=== PATIENT | male | born 1960 | race Caucasian/White ===

== ENCOUNTER 2016-04-10 17:40 | Inpatient (IN) | payer MEDICAID ==
[~2016-04-10] VITALS: Ht 182.9 cm; Wt 105.2 kg
[2016-04-10] MEDS ORDERED: NITR.4 SL (19:13)
[2016-04-10] MEDS ORDERED: ASPI81 PO (19:13)
[2016-04-10] MEDS ORDERED: METO50 PO (19:13)
[2016-04-10] MEDS ORDERED: ATOR20TA86 PO (19:13)
[2016-04-10] MEDS ORDERED: SERT100T12 PO (19:13)
[2016-04-10] MEDS ORDERED: CLOP75 PO (19:13)
[2016-04-10 19:59] LABS: BASOPHILS % (AUTO) 0.3 % (0.0-2.0); EOSINOPHILS % (AUTO) 2.4 % (1.0-6.0); HEMATOCRIT 46.3 % (41-53); HEMOGLOBIN 15.6 g/dL (13.5-17.5); LYMPHOCYTES # (AUTO) 3.1 K/uL (1.0-4.8); LYMPHOCYTES % (AUTO) 37.9 % (22.0-44.0); MEAN CORPUSCULAR HEMOGLOBIN 31.3 pg (26.0-34.0); MEAN CORPUSCULAR HGB CONC 33.7 G/dL (31.0-37.0); MEAN CORPUSCULAR VOLUME 93 fL (80-100); MONOCYTES # (AUTO) 0.4 K/uL (0.1-1.0); NEUTROPHILS # (AUTO) 4.5 K/uL (1.8-7.7); NEUTROPHILS % (AUTO) 54.4 % (40.0-70.0); PLATELET COUNT (AUTO) 179 K/uL (150-450); RED BLOOD CELL COUNT(AUTO) 4.99 MIL/uL (4.50-5.90); RED CELL DISTRIBUTION WIDTH 13.3 % (11.5-14.5); WHITE BLOOD COUNT (AUTO) 8.2 K/uL (4.5-11.0)
[2016-04-10 20:00] LABS: ANION GAP 8 mmol/L (8-16); CALCIUM, TOTAL 9.2 mg/dL (8.8-10.5); CARBON DIOXIDE 27 mmol/L (22-29); CHLORIDE 101 mmol/L (98-107); CREATININE 0.89 mg/dL (0.60-1.30); GLOMERULAR FILTR. RATE CALC > 60 mL/min (>60); SODIUM SERUM 136 mmol/L (136-145); UREA NITROGEN, BLOOD 24 mg/dL (7-18)
[2016-04-10 20:12] LABS: ALANINE AMINOTRANSFERASE 55 U/L (12-78); ALBUMIN 3.9 g/dL (3.4-5.0); ASPARTATE AMINOTRANSFERASE 49 U/L (15-37); BILIRUBIN,TOTAL 0.3 mg/dL (0.1-1.0); TOTAL PROTEIN, SERUM 7.5 g/dL (6.4-8.2)
[2016-04-10] MEDS ORDERED: LORazepam 2 MG TABLET PO ONE (20:45)
[2016-04-10] MEDS ORDERED: ZOLPIDEM TARTRATE 10 MG TABLET PO PRN (21:45)
[2016-04-10 21:57] LABS: APPEARANCE,URINE CLEAR (CLEAR); GLUCOSE, URINE (UA) NEGATIVE (NEGATIVE); KETONES,URINE NEGATIVE (NEGATIVE); LEUKOCYTE ESTERASE ,URINE NEGATIVE (NEGATIVE); OCCULT BLOOD,URINE NEGATIVE (NEGATIVE); PH,URINE 5.5 (5.0-8.0); PROTEIN,URINE NEGATIVE (NEGATIVE)
[2016-04-10 22:00] LABS: ADD UA MICROSCOPIC NO
[2016-04-11] MEDS ORDERED: INFLUENZA VIRUS VACCINE QVS 2016-17 (3YR+)/PF 60 MCG/0.5 ML SYRINGE IM ONE (00:30)
[2016-04-11] MEDS ORDERED: PNEUMOCOCCAL VACCINE POLYVALENT 0.5 ML VIAL [PPSV23] IM ONE (00:30)
[2016-04-11 01:06] VITALS: BP 121/89
[2016-04-11] MEDS ORDERED: NITROGLYCERIN 0.4 MG SUBLINGUAL TABLET #25 SL PRN (05:15)
[2016-04-11] MEDS ORDERED: LOPERAMIDE HCL 2 MG CAPSULE PO PRN (09:45)
[2016-04-11] MEDS ORDERED: ACETAMINOPHEN 325 MG TABLET PO PRN (09:45)
[2016-04-11] MEDS ORDERED: MAG HYDROX/AL HYDROX/SIMETH ES 30 ML SUSPENSION UDCUP PO PRN (09:45)
[2016-04-11] MEDS ORDERED: TUBERCULIN, PURIFIED PROTEIN DERIVATIVE 5 TU/0.1 ML SYG ID ONE (09:45)
[2016-04-11] MEDS ORDERED: MAGNESIUM HYDROXIDE SUSPENSION 30 ML UDCUP PO PRN (09:45)
[2016-04-11] MEDS ORDERED: PROMETHAZINE HCL 25 MG TABLET PO PRN (09:45)
[2016-04-11] MEDS ORDERED: GuaiFENesin/D-METHORPHAN [SUGAR-FREE] 200-20MG/10 ML SYRUP UDCUP PO PRN (09:45)
[2016-04-11] MEDS: ASPIRIN 81 MG CHEWABLE TABLET PO SCH (11:56)
[2016-04-11] MEDS: CLOPIDOGREL BISULFATE 75 MG TABLET PO SCH (11:57)
[2016-04-11] MEDS: METOPROLOL TARTRATE 25 MG TABLET PO SCH (11:57)
[2016-04-11] MEDS: ATORVASTATIN CALCIUM 20 MG TABLET PO SCH (11:57)
[2016-04-11] MEDS: GABAPENTIN 100 MG CAPSULE PO SCH ×3 (11:59→22:00)
[2016-04-11 13:31] VITALS: BP 122/76
[2016-04-11] MEDS: THIAMINE HCL 100 MG TABLET PO SCH (16:35)
[2016-04-11 21:35] VITALS: BP 119/79
[2016-04-11] MEDS: SERTRALINE HCL 100 MG TABLET PO SCH (21:59)
[2016-04-12 08:00] VITALS: BP_SYST 20
[2016-04-12] MEDS ORDERED: GABAPENTIN 300 MG CAPSULE PO SCH (09:00)
[2016-04-12] MEDS ORDERED: DULoxetine HCL 20 MG CAPSULE PO SCH (09:00)
[2016-04-12] MEDS: HydrOXYzine PAMOATE 50 MG CAPSULE PO PRN (09:47)
[2016-04-12] MEDS: ATORVASTATIN CALCIUM 20 MG TABLET PO SCH (09:48)
[2016-04-12] MEDS: CLOPIDOGREL BISULFATE 75 MG TABLET PO SCH (09:48)
[2016-04-12] MEDS: HALOPERIDOL 5 MG TABLET PO PRN (09:48)
[2016-04-12] MEDS: THIAMINE HCL 100 MG TABLET PO SCH ×2 (09:48→16:38)
[2016-04-12] MEDS: METOPROLOL TARTRATE 25 MG TABLET PO SCH (09:48)
[2016-04-12] MEDS: LORazepam 2 MG TABLET PO PRN (09:48)
[2016-04-12] MEDS: MULTIVITAMINS WITH MINERALS, THERAPEUTIC TABLET PO SCH (09:49)
[2016-04-12] MEDS: ASPIRIN 81 MG CHEWABLE TABLET PO SCH (09:49)
[2016-04-12] MEDS: FOLIC ACID 1 MG TABLET PO SCH (09:49)
[2016-04-12] MEDS: GABAPENTIN 400 MG CAPSULE PO SCH ×2 (13:03→16:39)
[2016-04-12 16:46] VITALS: BP 133/76
[2016-04-12] MEDS: SERTRALINE HCL 100 MG TABLET PO SCH (20:26)
[2016-04-13 08:00] VITALS: BP 140/88
[2016-04-13] MEDS: ATORVASTATIN CALCIUM 20 MG TABLET PO SCH (08:57)
[2016-04-13] MEDS: ASPIRIN 81 MG CHEWABLE TABLET PO SCH (08:57)
[2016-04-13] MEDS: METOPROLOL TARTRATE 25 MG TABLET PO SCH (08:57)
[2016-04-13] MEDS: THIAMINE HCL 100 MG TABLET PO SCH ×2 (08:57→16:40)
[2016-04-13] MEDS: MULTIVITAMINS WITH MINERALS, THERAPEUTIC TABLET PO SCH (08:57)
[2016-04-13] MEDS: GABAPENTIN 400 MG CAPSULE PO SCH ×3 (08:57→16:39)
[2016-04-13] MEDS: FOLIC ACID 1 MG TABLET PO SCH (08:57)
[2016-04-13] MEDS: CLOPIDOGREL BISULFATE 75 MG TABLET PO SCH (08:57)
[2016-04-13 16:41] VITALS: BP 132/67
[2016-04-13 16:46] VITALS: BP 112/77
[2016-04-13] MEDS: SERTRALINE HCL 100 MG TABLET PO SCH (21:06)
[2016-04-14 08:00] VITALS: BP 132/77
[2016-04-14] MEDS: CLOPIDOGREL BISULFATE 75 MG TABLET PO SCH (09:16)
[2016-04-14] MEDS: ATORVASTATIN CALCIUM 20 MG TABLET PO SCH (09:16)
[2016-04-14] MEDS: METOPROLOL TARTRATE 25 MG TABLET PO SCH (09:19)
[2016-04-14] MEDS: HALOPERIDOL 5 MG TABLET PO PRN (09:19)
[2016-04-14] MEDS: LORazepam 2 MG TABLET PO PRN (09:19)
[2016-04-14] MEDS: THIAMINE HCL 100 MG TABLET PO SCH ×2 (09:19→16:17)
[2016-04-14] MEDS: FOLIC ACID 1 MG TABLET PO SCH (09:19)
[2016-04-14] MEDS: HydrOXYzine PAMOATE 50 MG CAPSULE PO PRN (09:19)
[2016-04-14] MEDS: ASPIRIN 81 MG CHEWABLE TABLET PO SCH (09:19)
[2016-04-14] MEDS: GABAPENTIN 400 MG CAPSULE PO SCH ×3 (09:19→16:17)
[2016-04-14] MEDS: MULTIVITAMINS WITH MINERALS, THERAPEUTIC TABLET PO SCH (09:19)
[2016-04-14 16:43] VITALS: BP 109/71
[2016-04-14] MEDS: SERTRALINE HCL 100 MG TABLET PO SCH (20:24)
[2016-04-15 08:00] VITALS: BP 124/76
[2016-04-15] MEDS: METOPROLOL TARTRATE 25 MG TABLET PO SCH (08:44)
[2016-04-15] MEDS: CLOPIDOGREL BISULFATE 75 MG TABLET PO SCH (08:44)
[2016-04-15] MEDS: ATORVASTATIN CALCIUM 20 MG TABLET PO SCH (08:45)
[2016-04-15] MEDS: MULTIVITAMINS WITH MINERALS, THERAPEUTIC TABLET PO SCH (08:45)
[2016-04-15] MEDS: FOLIC ACID 1 MG TABLET PO SCH (08:45)
[2016-04-15] MEDS: GABAPENTIN 300 MG CAPSULE PO SCH ×3 (08:45→16:27)
[2016-04-15] MEDS: THIAMINE HCL 100 MG TABLET PO SCH ×2 (08:45→16:27)
[2016-04-15] MEDS: ASPIRIN 81 MG CHEWABLE TABLET PO SCH (08:45)
[2016-04-15 18:50] VITALS: BP 111/75
[2016-04-15] MEDS: SERTRALINE HCL 100 MG TABLET PO SCH (20:26)
[2016-04-15] MEDS ORDERED: HYDROCORTISONE 1% 30 GM OINTMENT TP PRN (22:15)
[2016-04-16 00:33] VITALS: BP 124/74
[2016-04-16] MEDS: LORazepam 2 MG TABLET PO PRN ×2 (00:35→14:25)
[2016-04-16 08:00] VITALS: BP 154/85
[2016-04-16] MEDS: CEPHALEXIN MONOHYDRATE 500 MG CAPSULE PO SCH ×3 (08:50→16:24)
[2016-04-16] MEDS: ASPIRIN 81 MG CHEWABLE TABLET PO SCH (08:50)
[2016-04-16] MEDS: GABAPENTIN 300 MG CAPSULE PO SCH ×3 (08:50→16:24)
[2016-04-16] MEDS: ATORVASTATIN CALCIUM 20 MG TABLET PO SCH (08:50)
[2016-04-16] MEDS: METOPROLOL TARTRATE 25 MG TABLET PO SCH (08:50)
[2016-04-16] MEDS: CLOPIDOGREL BISULFATE 75 MG TABLET PO SCH (08:50)
[2016-04-16] MEDS: FOLIC ACID 1 MG TABLET PO SCH (08:50)
[2016-04-16] MEDS: MULTIVITAMINS WITH MINERALS, THERAPEUTIC TABLET PO SCH (08:50)
[2016-04-16] MEDS: THIAMINE HCL 100 MG TABLET PO SCH ×2 (08:50→16:24)
[2016-04-16 09:10] LABS: DESMETHYLSERTRALINE LEVEL 44 ng/ml; SERTRALINE 36 ng/ml (30-200)
[2016-04-16] MEDS: HALOPERIDOL 5 MG TABLET PO PRN (14:25)
[2016-04-16 17:12] VITALS: BP 130/77
[2016-04-16] MEDS: SERTRALINE HCL 100 MG TABLET PO SCH (20:07)
[2016-04-17] MEDS: GABAPENTIN 300 MG CAPSULE PO SCH ×3 (08:53→16:51)
[2016-04-17] MEDS: MULTIVITAMINS WITH MINERALS, THERAPEUTIC TABLET PO SCH (08:53)
[2016-04-17] MEDS: CEPHALEXIN MONOHYDRATE 500 MG CAPSULE PO SCH ×3 (08:53→16:51)
[2016-04-17] MEDS: THIAMINE HCL 100 MG TABLET PO SCH ×2 (08:53→16:51)
[2016-04-17] MEDS: METOPROLOL TARTRATE 25 MG TABLET PO SCH (08:54)
[2016-04-17] MEDS: ASPIRIN 81 MG CHEWABLE TABLET PO SCH (08:54)
[2016-04-17] MEDS: CLOPIDOGREL BISULFATE 75 MG TABLET PO SCH (08:54)
[2016-04-17] MEDS: FOLIC ACID 1 MG TABLET PO SCH (08:54)
[2016-04-17] MEDS: ATORVASTATIN CALCIUM 20 MG TABLET PO SCH (08:55)
[2016-04-17 09:00] VITALS: BP 136/84
[2016-04-17 16:29] VITALS: BP 119/68
[2016-04-17] MEDS ORDERED: SERTRALINE HCL 100 MG TABLET PO SCH (21:00)
[2016-04-18 06:45] VITALS: BP 131/75
[2016-04-18] MEDS: LORazepam 2 MG TABLET PO PRN (06:47)
[2016-04-18 08:00] VITALS: BP 131/76
[2016-04-18] MEDS: ATORVASTATIN CALCIUM 20 MG TABLET PO SCH (08:56)
[2016-04-18] MEDS: ASPIRIN 81 MG CHEWABLE TABLET PO SCH (08:56)
[2016-04-18] MEDS: CLOPIDOGREL BISULFATE 75 MG TABLET PO SCH (08:56)
[2016-04-18] MEDS: METOPROLOL TARTRATE 25 MG TABLET PO SCH (08:56)
[2016-04-18] MEDS: FOLIC ACID 1 MG TABLET PO SCH (08:56)
[2016-04-18] MEDS: THIAMINE HCL 100 MG TABLET PO SCH (08:56)
[2016-04-18] MEDS: MULTIVITAMINS WITH MINERALS, THERAPEUTIC TABLET PO SCH (08:56)
[2016-04-18] MEDS: CEPHALEXIN MONOHYDRATE 500 MG CAPSULE PO SCH ×2 (08:56→12:07)
[2016-04-18] MEDS: GABAPENTIN 400 MG CAPSULE PO SCH ×2 (08:56→12:07)
[2016-04-18] MEDS ORDERED: SERT100T12 PO ×2 (10:50→11:46)
[2016-04-18] MEDS ORDERED: GABA-533 PO ×2 (10:50→11:46)
[2016-04-18] MEDS ORDERED: CEPH500 PO (11:46)
[2016-04-18] MEDS ORDERED: METO25 PO (11:46)
== END 2016-04-18 12:00 | disposition home or self-care (01) | DRG 751 ==
LOC: EMS 17:42 → 3EI 23:21
PROVIDERS: ADMIT Psychiatry & Neurology Psychiatry; ATTEND Psychiatry & Neurology Psychiatry
PROC: 3E0234Z Introduction of Serum, Toxoid and Vaccine into Muscle, Percutaneous Approach (ICD-10-PCS; principal; 2016-04-11)
DX: F33.2 Major depressive disorder, recurrent severe without psychotic features (principal); R45.851 Suicidal ideations; J98.4 Other disorders of lung; I10 Essential (primary) hypertension; F41.0 Panic disorder [episodic paroxysmal anxiety]; Z62.810 Personal history of physical and sexual abuse in childhood; F17.200 Nicotine dependence, unspecified, uncomplicated; Z91.19 Patient's noncompliance with other medical treatment and regimen; I25.2 Old myocardial infarction; Z59.0 Homelessness; Z91.411 Personal history of adult psychological abuse; Z95.5 Presence of coronary angioplasty implant and graft; Z88.8 Allergy status to other drugs, medicaments and biological substances; Z79.82 Long term (current) use of aspirin; Z79.02 Long term (current) use of antithrombotics/antiplatelets; Z79.899 Other long term (current) drug therapy; Z23 Encounter for immunization; Z81.1 Family history of alcohol abuse and dependence; I25.10 Atherosclerotic heart disease of native coronary artery without angina pectoris
CPT/HCPCS: 87081; 90471; 93005; 99285; G0431; G0480